=== PATIENT | male | born 1980 | race Caucasian/White ===

== ENCOUNTER 2017-01-31 17:36 | Emergency (ER) | payer BC ==
[~2017-01-31] VITALS: Ht 175.3 cm; Wt 72.8 kg
[2017-01-31 17:37] VITALS: TEMP 36.7; Ht 175.3 cm; Wt 72.8 kg
[2017-01-31] MEDS ORDERED: CITA20TA4 PO (17:45)
[2017-01-31] MEDS ORDERED: XYLOCAINE 1%/SOD BICARB 20 ML VIAL INFIL ONE ×2 (17:48→18:00)
[2017-01-31] MEDS: DIPHTHERIA/TETANUS/PERTUSSIS 0.5 ML SYR/VIAL ONE (17:52)
[2017-01-31] MEDS ORDERED: DIPHTHERIA/TETANUS/PERTUSSIS 0.5 ML SYR/VIAL IM. ONE (18:00)
[2017-01-31] MEDS ORDERED: AMOX875T PO (18:26)
--- NOTE | 2017-01-31 18:28 | EMERGENCY ROOM VISIT NOTE ---
ED Visit Note First contact with patient: 17:43 CHIEF COMPLAINT: Facial laceration secondary to dog bite HISTORY OF PRESENT ILLNESS: This 36-year-old male presents the ER with chief complaint of a dog bite just under his lower lip. The patient states that he was playing with his Spangle hound and was leaning down and the dog tried to jump and the dog's mouth accidentally caught the patient on his chin. The patient states that the laceration does not go through to the inside of his mouth. The patient's tetanus is not up-to-date. REVIEW OF SYSTEMS: 6 system review was performed and was negative unless stated otherwise in history of present illness. PMH: The patient is healthy; leg fracture SOCIAL HISTORY: Patient admits to tobacco use but denies any alcohol use. PHYSICAL EXAM: Vital Signs: Were reviewed Reviewed Nurse's notes. GENERAL: 36- year-old white male appears in no acute distress. MENTAL Status: The patient is alert, oriented, and coherent. EYES: Pupils are round, equal, and react briskly to light. FACE: There are superficial abrasions on the anterior aspect of the patient's chin. There is a deep almost Y-shaped laceration just inferior to the lower lip. This measures approximately 2.5 cm in length. The wound gapes open with traction. No deep structures are visualized. The wound does not penetrate to the inside of the mouth. EMERGENCY DEPARTMENT COURSE: The patient was evaluated. Adacel was given. Wound Repair: Complexity: Basic. Verbal consent was obtained after the risks and benefits were explained, including but not limited to bleeding, scarring, infection, pain, and bone/joint /nerve damage. The skin was prepped with betadine and a sterile field set. The wound was anesthetized with 3.0 ml of 1% buffered lidocaine. With direct pressure the bleeding subsided. Copious irrigation was performed using sterile saline. The wound was explored for foreign bodies and none found. Debridement was not performed. The deep tissue was approximated with 3 interrupted 5-0 Vicryl sutures. The wound edges were then approximated using 5-0 Ethilon with 7 simple interrupted sutures. Hemostasis and excellent approximation was achieved. Antibacterial ointment and a sterile dressing applied. Detailed wound care instructions and signs and symptoms of infection reviewed with the patient. No complications and the patient tolerated the procedure well. The patient was then given Augmentin 875 mg by mouth while in the emergency room. Animal dog bite form was completed. The patient was discharged home in stable condition. DIAGNOSIS: 2.5 cm facial laceration secondary to dog bite DISCHARGE INSTRUCTIONS: Keep wound clean and dry. No water on the area for 12- 24 hrs then no soaking until sutures removed. Do not allow any crusting or dried blood to accumulate on sutures. If this occurs, use a 1:1 solution of hydrogen peroxide/water on a Q-tip to clean the wound. Use an antibiotic ointment for 3-4 days, then let wound dry. Suture removal in 6-7 days. Take Augmentin as prescribed. Ice and elevate for swelling and pain. Tylenol 650 mg every 6 hrs for pain. Any signs of infection, follow-up with your family doctor. Patient condition was: stable. Please see Emergency Department Medical Record for additional patient information; this may include discharge diagnosis, interpretation of EKG, laboratory, and/or radiologic studies, Emergency Department course, etc. Current/Historical Medications Scheduled Amoxicillin & Pot Clavulanate (Augmentin 875-125 mg), 1 TAB PO BID Citalopram Hydrobromide (Citalopram Hydrobromide), 20 TAB PO DAILY Allergies Uncoded Allergies: NKA (Allergy, Unknown, 04/02/03) Vital Signs Date Time Temp Pulse Resp B/P (MAP) Pulse Ox O2 Delivery O2 Flow Rate FiO2 01/31/17 17:37 36.7 77 20 135/87 96 Room Air Medications Administered Medications (Trade) Dose Ordered Sig/[place] Route Start Time Stop Time Status Last Admin Dose Admin Lidocaine HCl (Buffered Lidocaine 1% Inj) 20 ml NOW ONCE INFIL 01/31/17 18:00 01/31/17 18:01 DC 01/31/17 17:51 20 ML Diphtheria/ Pertussis/Tetanus Vacc (Adacel Inj) 0.5 ml ONCE ONCE IM. 01/31/17 18:00 01/31/17 18:01 DC 01/31/17 17:58 0.5 ML Departure Information Prescriptions Amoxicillin & Pot Clavulanate (Augmentin 875-125 mg) 1 Tab Tab 1 TAB PO BID for 10 Days, #20 TAB Prov: Yuki Hope PA-C 01/31/17 Referrals No Doctor, Assigned (PCP) Patient Instructions Formerly [facility]
[2017-01-31] MEDS ORDERED: AMOXICILLIN/CLAVULANATE TAB 875 MG TAB PO ONE (18:30)
[2017-01-31 18:31] VITALS: BP 103/78; PULSE 54; O2SAT 97
== END 2017-01-31 18:32 | disposition home or self-care (01) ==
LOC: C.EDB 17:37 → C.EDD 18:32
DX: S01.81XA Laceration without foreign body of other part of head, initial encounter (principal); V54.0XXA Driver of pick-up truck or van injured in collision with heavy transport vehicle or bus in nontraffic accident, initial encounter; Z23 Encounter for immunization; F17.200 Nicotine dependence, unspecified, uncomplicated